=== PATIENT | female | born 1975 | race Caucasian/White ===

== ENCOUNTER → 2019-09-23 | Outpatient (CLI) | payer BC ==
--- NOTE | 2019-09-23 14:07 | Diagnostic Imaging Report ---
INDICATION: Left lower quadrant abdominal pain. TIME OF EXAM: 1:09 PM No definite free air is identified. Bowel gas pattern is nonobstructed. No pathologic calcifications are identified. IMPRESSION: No acute abnormality is detected. Dictated by: Dictated on workstation # [id number]
== END ==
LOC: RAD FS 12:58
PROVIDERS: ATTEND Nurse Practitioner Family
DX: R10.32 Left lower quadrant pain (principal)
CPT/HCPCS: 74019